=== PATIENT | female | born 1985 | race Two or more races ===

== ENCOUNTER 2017-08-06 13:48 | Emergency (ER) | payer BC ==
[2017-08-06 13:57] VITALS: BP 111/76; PULSE 76; TEMP 98.2; BMI 30.1
--- NOTE | 2017-08-06 14:29 | PDOC ---
History of Present Illness - General Chief Complaint: Injury Stated Complaint: R/O FX LT TOE Time Seen by Provider: 08/06/17 14:18 - History of Present Illness Initial Comments: 08/06/17 14:26 CHIEF COMPLAINT: pain to L great toe HISTORY OF PRESENT ILLNESS: 32 yo F presents to fast track with pain to L great toe. Patient states she "fractured" her toe when she was 11 "and my mom didn't believe me, but we went to the doctor 3 months later and it was too late to do anything about it. 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 PAST MEDICAL HISTORY: Denies past medical history FAMILY HISTORY: Denies SOCIAL HISTORY: Denies tobacco, alcohol, illicit drug use. SURGICAL HISTORY: Denies ALLERGIES: No known drug allergies REVIEW OF SYSTEMS General/Constitutional: Denies fever or chills. Denies weakness, weight change. HEENT: Denies change in vision. Denies ear pain or discharge. Denies sore throat. Cardiovascular: Denies chest pain or shortness of breath. Respiratory: Denies cough, wheezing, or hemoptysis. Gastrointestinal: Denies nausea, vomiting, diarrhea or constipation. Denies rectal bleeding. Genitourinary: Denies dysuria, frequency, or change in urination. Musculoskeletal: Pain to left great toe when walking.Denies joint or muscle swelling or pain. Denies neck or back pain. Skin and breasts: Denies rash or easy bruising. PHYSICAL EXAM General Appearance: Well-appearing, appropriately dressed. No apparent distress. HEENT: EOMI, PERRLA. No conjunctival pallor. No photophobia, scleral icterus. Respiratory/Chest: Lungs CTAB. Cardiovascular: RRR. S1, S2. Gastrointestinal/Abdominal: Normal bowel sounds. Abdomen soft, non-distended. No tenderness or rebound tenderness. No organomegaly, pulsatile mass, guarding , hernia, hepatomegaly, splenomegaly. Musculoskeletal/Extremities: No erythema, swelling, deformity, or ecchymosis to L great toe. FROM of all extremities, normal capillary refill. Pelvis Stable. No CVA tenderness. No tenderness to extremities, pedal edema, swelling , erythema or deformity. Integumentary: Appropriate color, dry, warm. No cyanosis, erythema, jaundice or rash Neurologic: environmental conservation officer II-XII intact. Fully oriented, alert. Appropriate mood/affect. Motor strength 5/5. No appreciable EOM palsy, facial droop or sensory deficit. Past History - Past Medical History Allergies/Adverse Reactions: Allergies Allergy/AdvReac Type Severity Reaction Status Date / Time No Known Allergies Allergy Verified 08/06/17 13:49 Home Medications: Ambulatory Orders Diclofenac Sodium 75 mg PO BID #14 tablet. 08/06/17 COPD: No - Suicide/Smoking/Psychosocial Hx Smoking Status: Yes Smoking History: Current every day smoker Have you smoked in the past 12 months: Yes Number of Cigarettes Smoked Daily: 7 Information on smoking cessation initiated: Yes 'Breaking Loose' booklet given: 08/06/17 Hx Alcohol Use: No Drug/Substance Use Hx: No Substance Use Type: Marijuana *Physical Exam - Vital Signs Last Vital Signs Temp Pulse Resp BP Pulse Ox 98.2 F 76 18 111/76 100 08/06/17 13:50 08/06/17 13:50 08/06/17 13:50 08/06/17 13:50 08/06/17 13:50 ED Treatment Course - LABORATORY CBC & Chemistry Diagram: 08/06/17 15:41 - RADIOLOGY Radiology Studies Ordered: Category Date Time Status TOE(S) LEFT [RAD] Stat Radiology 08/06/17 14:25 Ordered Medical Decision Making - Medical Decision Making 08/06/17 15:07 32 yo F presents to fast track with pain to L great toe. -X-ray Patient refused pain medicine. 08/06/17 15:42 X-ray negative for acute fracture, old fracture seen to left great toe. Patient states she does eat "a lot of red meat" but denies excessive alcohol drinking or seafood intake. Will eval for gout. -CBC, ESR, uric acid Labs unremarakble. Post op boot, NSAIDS, f/u with ortho. *DC/Admit/Observation/Transfer Diagnosis at time of Disposition: Toe pain, left - Discharge Dispostion Disposition: HOME Condition at time of disposition: Stable Admit: No - Prescriptions Prescriptions: Diclofenac Sodium 75 mg PO BID #14 tablet. - Referrals Referrals: Trenton Hendrickson MD [Staff Physician] - - Patient Instructions Printed Discharge Instructions: DI for Turf Toe Additional Instructions: Please take medications as prescribed and let your foot rest for a few days. If your pain persists past 5-7 days, please follow up with podiatry for further evaluation of your toe pain. If you develop any increased swelling, pain, or loss of sensation to your toe, or any new or worsening symptoms, please return to the ER. - Post Discharge Activity Forms/Work/School Notes: Back to Work
[2017-08-06 16:45] LABS: BASOPHIL 0.5 % (0-2.0); MCH 25.6 pg (25.7-33.7); MCHC 33.3 g/dl (32.0-36.0); MEAN PLT VOLUME 9.2 fl (7.5-11.1); NEUTROPHILS 54.9 % (42.8-82.8); PLATELET COUNT 270 K/MM3 (134-434); RDW 14.5 % (11.6-15.6)
== END 2017-08-06 16:38 | disposition home or self-care (01) ==
LOC: JER 13:48 → JERFT 13:48
DX: M79.675 Pain in left toe(s) (principal)
CPT/HCPCS: 36415; 73660-TC; 84550; 84703; 85025; 85651; 99281-25